=== PATIENT | female | born 1965 | race Caucasian/White ===

== ENCOUNTER 2023-10-24 04:53 | Inpatient (IN) ==
[2023-10-17 15:09] LABS: Basophils # (Auto) 0.02 K/mcL (0.00-0.30); Basophils % (Auto) 0.2 % (0.0-2.0); Eosinophils # (Auto) 0.09 K/mcL (0.00-0.70); Eosinophils % (Auto) 0.9 % (0.0-7.0); Hematocrit 46.2 % (34.1-44.9); Hemoglobin 14.8 g/dL (11.2-15.7); Lymphocytes # (Auto) 2.51 K/mcL (1.50-4.80); Lymphocytes % (Auto) 24.5 % (15.5-49.0); Mean Cell Volume 96.3 fL (80.0-100.0); Mean Platelet Volume 11.4 fL (8.8-12.5); Monocytes # (Auto) 0.62 K/mcL (0.10-0.90); Monocytes % (Auto) 6.1 % (1.0-12.0); Neutrophils % (Auto) 67.5 % (38.0-78.0); Platelet Count 202 K/mcL (140-440); Red Cell Distribution Width 16.1 % (11.5-14.5); WBC 10.2 K/mcL (4.5-11.0)
[2023-10-17 18:28] LABS: Estimated Average Glucose(eAG) 126 mg/dL
[2023-10-17 20:03] LABS: ALT/SGPT 6 U/L (<40); AST/SGOT 24 U/L (<32); Albumin 3.8 gm/dL (3.2-5.2); Albumin/Globulin Ratio 1.1 (1.0-2.3); Alkaline Phosphatase 51 U/L (39-117); Bilirubin,Total 0.5 mg/dL (0.1-1.0); Blood Urea Nitrogen 16 mg/dL (6-20); Calcium 8.9 mg/dL (8.6-10.4); Carbon Dioxide 27 mmol/L (22-30); Chloride 101 mmol/L (96-108); Globulin 3.6 gm/dL (2.2-3.7); Glomerular Filtration Rate 70; Glucose 109 mg/dL (70-105)
[2023-10-24] MEDS ORDERED: KETAMINE 50 MG/ML Syringe IV ONE (07:21)
[2023-10-24] MEDS ORDERED: HYDROmorphone 1 MG/ML SYRINGE ONE (07:21)
[2023-10-24] MEDS ORDERED: LIDOCAINE 2% PF 5 ML VIAL ONE (07:22)
[2023-10-24] MEDS ORDERED: ONDANSETRON 4 MG/2 ML VIAL ONE (07:22)
[2023-10-24] MEDS ORDERED: DEXAMETHASONE 10 MG/ML VIAL ONE (07:22)
[2023-10-24] MEDS ORDERED: ROCURONIUM 10 MG/ML ML IV ONE ×3 (07:22→12:24)
[2023-10-24] MEDS ORDERED: MAGNESIUM SULFATE 2 GM/50 ML BAG IV ONE (07:22)
[2023-10-24] MEDS ORDERED: PROPOFOL 200 MG/20 ML VIAL IV ONE (07:23)
[2023-10-24] MEDS: ceFAZolin 2 GM in DEXTROSE 5% IN WATER 50 ML IV SCH (07:33)
[2023-10-24] MEDS: VANCOMYCIN 1,500 MG in 0.9 % SODIUM CHLORIDE 500 ML IV SCH (09:06)
[2023-10-24] MEDS ORDERED: PHENYLephrine 1 MG/10 ML SYRINGE (ANEST) ONE (09:51)
[2023-10-24] MEDS: GENTAMICIN SULFATE 800 MG/20 ML VIAL IR ONE (10:04)
[2023-10-24] MEDS: VANCOMYCIN 1 GM VIAL TOPICAL SCH (10:04)
[2023-10-24] MEDS ORDERED: ePHEDrine 50 MG/5 ML SYRINGE (ANEST) IV ONE (10:16)
[2023-10-24] MEDS ORDERED: TRANEXAMIC ACID 1,000 MG/10 ML VIAL ONE (10:28)
[2023-10-24] MEDS ORDERED: OXYMETAZOLINE 1 NASAL SPRAY BOTTLE NAS ONE (10:32)
[2023-10-24] MEDS ORDERED: SUGAMMADEX SODIUM 200 MG/2 ML VIAL IV ONE (12:24)
[2023-10-24] MEDS ORDERED: IPRATROPIUM/ALBUTEROL 3 ML AMPUL.NEB NEB PRN (12:42)
[2023-10-24] MEDS ORDERED: LACTATED RINGERS 250 ML IV PRN (12:42)
[2023-10-24] MEDS ORDERED: PROMETHAZINE 25 MG/ML VIAL IV PRN (12:42)
[2023-10-24] MEDS ORDERED: ONDANSETRON 4 MG/2 ML VIAL IV PRN ×2 (12:42→13:13)
[2023-10-24] MEDS ORDERED: NALOXONE HCL 0.4 MG/ML VIAL IV PRN (12:42)
[2023-10-24] MEDS ORDERED: MEPERIDINE 25 MG/ML VIAL IV PRN (12:42)
[2023-10-24] MEDS ORDERED: diphenhydrAMINE 50 MG/ML VIAL IV PRN (12:42)
[2023-10-24] MEDS ORDERED: fentaNYL 100 MCG/2 ML VIAL IV PRN (12:42)
[2023-10-24] MEDS ORDERED: METHOCARBAMOL 1,000 MG/10 ML VIAL IV PRN (12:42)
[2023-10-24] MEDS: ACETAMINOPHEN 1,000 MG/100 ML BAG IV ONE (13:35)
[2023-10-24] MEDS: LACTATED RINGERS 1,000 ML IV SCH (14:09)
[2023-10-24] MEDS: 0.9 % SODIUM CHLORIDE 1,000 ML IV SCH (14:09)
[2023-10-24] MEDS: ACETAMINOPHEN 1,000 MG/100 ML BAG IV SCH (14:09)
[2023-10-24] MEDS: cefTRIAXone 1 GM VIAL IV SCH (14:39)
[2023-10-24] MEDS: 0.9 % SODIUM CHLORIDE 1,000 ML IV ONE (14:44)
[2023-10-24 15:00] LABS: Hematocrit 47.3 % (34.1-44.9); Hemoglobin 14.4 g/dL (11.2-15.7)
[2023-10-24] MEDS: METOCLOPRAMIDE 10 MG/2 ML VIAL IV SCH (17:15)
[2023-10-24] MEDS: PANTOPRAZOLE 40 MG VIAL IV SCH (17:15)
[2023-10-24] MEDS ORDERED: DEXTROSE 31 GM ORAL.SUSP PO PRN (21:35)
[2023-10-24] MEDS ORDERED: DEXTROSE 50% 50 ML VIAL IV PRN (21:35)
[2023-10-24] MEDS: INSULIN LISPRO 1 UNIT/0.01 ML UNIT SQ ONE (23:33)
[2023-10-25 06:46] LABS: Basophils # (Auto) 0.01 K/mcL (0.00-0.30); Basophils % (Auto) 0.1 % (0.0-2.0); Eosinophils # (Auto) 0 K/mcL (0.00-0.70); Eosinophils % (Auto) 0 % (0.0-7.0); Hematocrit 36.5 % (34.1-44.9); Hemoglobin 11.7 g/dL (11.2-15.7); Lymphocytes % (Auto) 5.9 % (15.5-49.0); Mean Cell Volume 97.1 fL (80.0-100.0); Mean Corpuscular HGB Conc 32.1 g/dL (31.0-36.0); Mean Platelet Volume 11.8 fL (8.8-12.5); Monocytes # (Auto) 0.58 K/mcL (0.10-0.90); Monocytes % (Auto) 3.4 % (1.0-12.0); Neutrophils % (Auto) 90.2 % (38.0-78.0); Platelet Count 178 K/mcL (140-440); RBC 3.76 M/mcL (3.59-5.38); Red Cell Distribution Width 16.4 % (11.5-14.5); WBC 16.8 K/mcL (4.5-11.0)
[2023-10-25 07:20] LABS: ALT/SGPT < 5 U/L (<40); AST/SGOT 18 U/L (<32); Albumin 2.9 gm/dL (3.2-5.2); Albumin/Globulin Ratio 1.3 (1.0-2.3); Alkaline Phosphatase 37 U/L (39-117); Bilirubin,Direct < 0.2 mg/dL (0-0.3); Bilirubin,Total 0.3 mg/dL (0.1-1.0); Blood Urea Nitrogen 13 mg/dL (6-20); Calcium 6.9 mg/dL (8.6-10.4); Carbon Dioxide 20 mmol/L (22-30); Chloride 108 mmol/L (96-108); Globulin 2.3 gm/dL (2.2-3.7); Glomerular Filtration Rate 94; Glucose 147 mg/dL (70-105); Lactate Dehydrogenase 130 U/L (135-225); Phosphorous 2.8 mg/dL (2.5-4.5); Triglycerides 114 mg/dL (<150); Uric Acid 6.4 mg/dL (2.5-8.0)
[2023-10-25] MEDS: INSULIN LISPRO 1 UNIT/0.01 ML UNIT SQ SCH (08:26)
[2023-10-25] MEDS: morphine 4 MG/ML VIAL IV PRN (12:55)
[2023-10-26 06:35] LABS: Basophils # (Auto) 0.02 K/mcL (0.00-0.30); Basophils % (Auto) 0.1 % (0.0-2.0); Eosinophils # (Auto) 0.02 K/mcL (0.00-0.70); Eosinophils % (Auto) 0.1 % (0.0-7.0); Hematocrit 35.4 % (34.1-44.9); Lymphocytes # (Auto) 2.05 K/mcL (1.50-4.80); Lymphocytes % (Auto) 14.9 % (15.5-49.0); Mean Cell Volume 99.7 fL (80.0-100.0); Mean Corpuscular HGB Conc 31.1 g/dL (31.0-36.0); Mean Platelet Volume 11.9 fL (8.8-12.5); Monocytes # (Auto) 0.67 K/mcL (0.10-0.90); Monocytes % (Auto) 4.9 % (1.0-12.0); Neutrophils % (Auto) 79.5 % (38.0-78.0); Platelet Count 163 K/mcL (140-440); RBC 3.55 M/mcL (3.59-5.38); Red Cell Distribution Width 17.2 % (11.5-14.5); WBC 13.7 K/mcL (4.5-11.0)
[2023-10-26 06:46] LABS: ALT/SGPT 5 U/L (<40); AST/SGOT 17 U/L (<32); Albumin 2.9 gm/dL (3.2-5.2); Albumin/Globulin Ratio 1.2 (1.0-2.3); Alkaline Phosphatase 38 U/L (39-117); Bilirubin,Direct < 0.2 mg/dL (0-0.3); Bilirubin,Total 0.3 mg/dL (0.1-1.0); Blood Urea Nitrogen 9 mg/dL (6-20); Calcium 6.7 mg/dL (8.6-10.4); Carbon Dioxide 23 mmol/L (22-30); Chloride 110 mmol/L (96-108); Globulin 2.4 gm/dL (2.2-3.7); Glomerular Filtration Rate 94; Glucose 94 mg/dL (70-105); Lactate Dehydrogenase 140 U/L (135-225); Triglycerides 115 mg/dL (<150)
[2023-10-26] MEDS: POTASSIUM PHOSPHATE 40 MEQ in DEXTROSE 5% IN WATER 500 ML IV SCH (14:41)
[2023-10-27 06:53] LABS: Basophils # (Auto) 0.02 K/mcL (0.00-0.30); Basophils % (Auto) 0.2 % (0.0-2.0); Eosinophils # (Auto) 0.11 K/mcL (0.00-0.70); Hematocrit 38.4 % (34.1-44.9); Hemoglobin 11.9 g/dL (11.2-15.7); Lymphocytes # (Auto) 1.39 K/mcL (1.50-4.80); Lymphocytes % (Auto) 12.7 % (15.5-49.0); Mean Platelet Volume 11.7 fL (8.8-12.5); Monocytes # (Auto) 0.59 K/mcL (0.10-0.90); Monocytes % (Auto) 5.4 % (1.0-12.0); Neutrophils % (Auto) 79.8 % (38.0-78.0); Platelet Count 161 K/mcL (140-440); RBC 3.84 M/mcL (3.59-5.38); Red Cell Distribution Width 17.3 % (11.5-14.5)
[2023-10-27 07:18] LABS: ALT/SGPT < 5 U/L (<40); AST/SGOT 16 U/L (<32); Albumin 2.8 gm/dL (3.2-5.2); Albumin/Globulin Ratio 1.1 (1.0-2.3); Alkaline Phosphatase 42 U/L (39-117); Bilirubin,Direct < 0.2 mg/dL (0-0.3); Bilirubin,Total 0.2 mg/dL (0.1-1.0); Blood Urea Nitrogen 7 mg/dL (6-20); Calcium 6.7 mg/dL (8.6-10.4); Carbon Dioxide 21 mmol/L (22-30); Chloride 111 mmol/L (96-108); Globulin 2.6 gm/dL (2.2-3.7); Glomerular Filtration Rate 105; Glucose 87 mg/dL (70-105); Lactate Dehydrogenase 130 U/L (135-225); Phosphorous 1.8 mg/dL (2.5-4.5); Triglycerides 124 mg/dL (<150); Uric Acid 6.3 mg/dL (2.5-8.0)
[2023-10-28 07:04] LABS: Basophils # (Auto) 0.03 K/mcL (0.00-0.30); Basophils % (Auto) 0.3 % (0.0-2.0); Eosinophils # (Auto) 0.12 K/mcL (0.00-0.70); Hematocrit 39.1 % (34.1-44.9); Hemoglobin 12.3 g/dL (11.2-15.7); Lymphocytes # (Auto) 1.74 K/mcL (1.50-4.80); Lymphocytes % (Auto) 14.5 % (15.5-49.0); Mean Cell Volume 99.5 fL (80.0-100.0); Mean Corpuscular HGB Conc 31.5 g/dL (31.0-36.0); Mean Platelet Volume 11.5 fL (8.8-12.5); Monocytes # (Auto) 0.53 K/mcL (0.10-0.90); Monocytes % (Auto) 4.4 % (1.0-12.0); Neutrophils % (Auto) 78.3 % (38.0-78.0); Platelet Count 172 K/mcL (140-440); RBC 3.93 M/mcL (3.59-5.38); Red Cell Distribution Width 16.9 % (11.5-14.5)
[2023-10-28 07:37] LABS: ALT/SGPT < 5 U/L (<40); AST/SGOT 17 U/L (<32); Albumin/Globulin Ratio 1.1 (1.0-2.3); Alkaline Phosphatase 63 U/L (39-117); Bilirubin,Direct < 0.2 mg/dL (0-0.3); Bilirubin,Total 0.3 mg/dL (0.1-1.0); Blood Urea Nitrogen 5 mg/dL (6-20); Carbon Dioxide 21 mmol/L (22-30); Chloride 109 mmol/L (96-108); Globulin 2.7 gm/dL (2.2-3.7); Glomerular Filtration Rate 99; Glucose 72 mg/dL (70-105); Lactate Dehydrogenase 158 U/L (135-225); Phosphorous 1.9 mg/dL (2.5-4.5); Triglycerides 142 mg/dL (<150); Uric Acid 7.1 mg/dL (2.5-8.0)
[2023-10-28] MEDS: POTASSIUM PHOSPHATE 40 MEQ in DEXTROSE 5% IN WATER 500 ML IV SCH (16:21)
[2023-10-29] MEDS ORDERED: ONDANSETRON 4 MG ODT TABLET SL PRN (17:05)
[2023-10-29] MEDS: METOCLOPRAMIDE 10 MG TABLET PO SCH (21:38)
[2023-10-30 06:53] LABS: Basophils # (Auto) 0.02 K/mcL (0.00-0.30); Basophils % (Auto) 0.2 % (0.0-2.0); Eosinophils # (Auto) 0.14 K/mcL (0.00-0.70); Eosinophils % (Auto) 1.6 % (0.0-7.0); Hematocrit 40.6 % (34.1-44.9); Hemoglobin 12.6 g/dL (11.2-15.7); Lymphocytes # (Auto) 1.81 K/mcL (1.50-4.80); Lymphocytes % (Auto) 20.9 % (15.5-49.0); Mean Cell Volume 97.8 fL (80.0-100.0); Mean Platelet Volume 11.1 fL (8.8-12.5); Monocytes # (Auto) 0.77 K/mcL (0.10-0.90); Monocytes % (Auto) 8.9 % (1.0-12.0); Neutrophils % (Auto) 66.2 % (38.0-78.0); Platelet Count 204 K/mcL (140-440); RBC 4.15 M/mcL (3.59-5.38); WBC 8.6 K/mcL (4.5-11.0)
[2023-10-30] MEDS: PANTOPRAZOLE 40 MG TABLET PO SCH (07:04)
[2023-10-30 07:56] LABS: ALT/SGPT < 5 U/L (<40); AST/SGOT 16 U/L (<32); Albumin 3.2 gm/dL (3.2-5.2); Albumin/Globulin Ratio 1.1 (1.0-2.3); Alkaline Phosphatase 51 U/L (39-117); Bilirubin,Direct < 0.2 mg/dL (0-0.3); Bilirubin,Total 0.3 mg/dL (0.1-1.0); Blood Urea Nitrogen 3 mg/dL (6-20); Calcium 7.6 mg/dL (8.6-10.4); Carbon Dioxide 18 mmol/L (22-30); Chloride 108 mmol/L (96-108); Glomerular Filtration Rate 105; Glucose 86 mg/dL (70-105); Lactate Dehydrogenase 174 U/L (135-225); Triglycerides 154 mg/dL (<150); Uric Acid 8.2 mg/dL (2.5-8.0)
[2023-10-31] MEDS ORDERED: ACETAMINOPHEN 1,000 MG/100 ML BAG IV PRN (16:40)
== END 2023-11-01 14:30 | disposition home or self-care (01) | DRG 330 ==
LOC: MEDSUR 04:53 → EDSTATUS 07:30
PROVIDERS: ADMIT Family Medicine Adult Medicine; ATTEND Family Medicine Adult Medicine